=== PATIENT | male | born 1930 | race Caucasian/White ===

== ENCOUNTER → 2016-09-08 | Outpatient (CLI) | payer OTHER ==
[~2016-09-08] MED LIST: ACID CONTROL150 MG PO; ASPIRIN81 M2 PO; ASPIRIN81 MG PO; ASPIRINEC PO; ATORVASTATIN CA10 MG PO; CERTAGEN PO; COREG PO; COREG3.125 MG PO; COUMADIN2.5 MG PO; COUMADIN5 MG PO; FISH OIL 1,0001 CAP PO; FISH OIL 1,001000 M1 PO; FISH OIL 1,001000 MG PO; FISH OIL500 M2 PO; FLOMAX0.4 M1 PO; FLORINEF0.1 M1 PO; HUMALOG100 U/M1 SQ; HUMALOG100 U/ML SUBQ; IMDUR PO; IMDUR-ER60 M1 PO; IMDUR30 MG PO; LANTUS100 U/ML SQ; LANTUS100 U/ML SUBQ; LANTUS100 UNITS/ SUBQ; LASIX PO; LASIX20 MG PO; LIPITOR PO; LISINOPRIL10 MG PO; LISINOPRIL2.5 MG PO; LORTAB 7.5-5001 TAB PO; LORTAB 7.51 TAB 7.5/ PO; LORTAB 7.51 TAB PO; MULTI VITAMIN1 EACH PO; MULTI-VITAMIN1 EAC1 PO; MULTIVITAMIN1 UDCAP PO; NITROSTAT0.4 MG SL; NOVOLOG100 U/M1; OSTEO BIFLEX PO; PLAVIX PO; PRILOSEC PO; RANEXA1000 MG PO; RANEXA500 MG PO; RANITIDINE HCL150 M1 PO; SIMVASTATIN10 MG PO; TEMAZEPAM PO; TEMAZEPAM30 MG PO; ZESTRIL10 M1 PO; ZESTRIL5 MG PO; ZOCOR PO; ZOCOR10 MG PO
== END | disposition home or self-care (01) ==
LOC: SLAB 08:57
DX: E11.65 Type 2 diabetes mellitus with hyperglycemia (principal)
CPT/HCPCS: 36415; 83036

== ENCOUNTER → 2016-10-06 | Outpatient (CLI) | payer OTHER ==
[2016-10-06 10:44] LABS: CALCIUM SERUM 9.7 mg/dL (8.4-10.2); CREATININE SERUM 1.7 mg/dL (0.6-1.4); GLOM FILT RATE Estimated 35.7 mL/min (>60); MAGNESIUM 2.5 mg/dL (1.6-3.0); POTASSIUM 4.5 mmol/L (3.5-5.1)
== END | disposition home or self-care (01) ==
LOC: SLAB 10:00
DX: I50.9 Heart failure, unspecified (principal)
CPT/HCPCS: 36415; 80048; 83735

== ENCOUNTER → 2016-12-01 | Outpatient (CLI) | payer OTHER ==
[2016-12-01 13:16] LABS: BUN/CREATININE RATIO 22.5; CALCIUM SERUM 9.2 mg/dL (8.4-10.2); CREATININE SERUM 1.2 mg/dL (0.6-1.4); GLOM FILT RATE Estimated 54.4 mL/min (>60); MAGNESIUM 2.1 mg/dL (1.6-3.0); POTASSIUM 5.3 mmol/L (3.5-5.1)
== END | disposition home or self-care (01) ==
LOC: SLAB 11:36
DX: I50.9 Heart failure, unspecified (principal)
CPT/HCPCS: 36415; 80048; 83036; 83735